=== PATIENT | female | born 1950 | race Caucasian/White ===

== ENCOUNTER 2016-10-03 16:26 | Emergency (ER) | payer MEDICARE ==
[~2016-10-03] VITALS: Ht 154.9 cm; Wt 63.5 kg
[2016-10-03 21:37] LABS: APPEARANCE,URINE CLOUDY (CLEAR); GLUCOSE, URINE (UA) 100 mg/dL (NEGATIVE); KETONES,URINE NEGATIVE (NEGATIVE); LEUKOCYTE ESTERASE ,URINE SMALL (NEGATIVE); OCCULT BLOOD,URINE SMALL (NEGATIVE); PROTEIN,URINE POS 1+ (NEGATIVE)
[2016-10-03 21:38] LABS: ADD UA MICROSCOPIC YES
[2016-10-03 22:01] LABS: SQUAMOUS EPITHELIAL CELL,UR Many /LPF (None Seen)
[2016-10-03 22:02] LABS: CALCIUM OXALATE CRYSTALS,UR Moderate /LPF (None Seen)
[2016-10-03 22:03] LABS: WBC,URINE 26-50 /HPF (0-5)
[2016-10-03 22:12] VITALS: BP 139/81
[2016-10-03] MEDS ORDERED: ACETAMINOPHEN 500 MG TABLET PO ONE (22:15)
== END 2016-10-03 22:20 | disposition home or self-care (01) ==
LOC: EMS 16:30
DX: M51.26 Other intervertebral disc displacement, lumbar region (principal); J06.9 Acute upper respiratory infection, unspecified; F14.90 Cocaine use, unspecified, uncomplicated; F17.210 Nicotine dependence, cigarettes, uncomplicated; Z59.0 Homelessness; Z88.6 Allergy status to analgesic agent; Z88.8 Allergy status to other drugs, medicaments and biological substances
CPT/HCPCS: 87086; 99284; 99406

== ENCOUNTER 2018-06-04 11:24 | Inpatient (IN) | payer MEDICARE, MEDICAID ==
[~2018-06-04] VITALS: Ht 147.3 cm; Wt 40.0 kg
[2018-06-04 13:42] VITALS: BP 117/73
[2018-06-04] MEDS ORDERED: ZOLPIDEM TARTRATE 10 MG TABLET PO PRN (13:45)
[2018-06-04] MEDS ORDERED: QUET200T PO (14:23)
[2018-06-04] MEDS ORDERED: ARIP10TA8 PO (14:23)
[2018-06-04] MEDS ORDERED: CloNIDine HCL 0.1 MG TABLET PO PRN (15:15)
[2018-06-04] MEDS ORDERED: ALBUTEROL SULFATE HFA 90 MCG/PUFF 8 GM INHALER IH PRN (15:15)
[2018-06-04] MEDS ORDERED: IBUPROFEN 400 MG TABLET PO PRN (15:15)
[2018-06-04] MEDS ORDERED: ONDANSETRON HCL 4 MG TABLET PO PRN (15:15)
[2018-06-04] MEDS ORDERED: PETROLATUM,WHITE 71 GM JELLY TP PRN (15:15)
[2018-06-04] MEDS ORDERED: DOCUSATE SODIUM 100 MG CAPSULE PO PRN (15:15)
[2018-06-04] MEDS ORDERED: NICOTINE 14 MG/24 HOUR PATCH TD PRN (15:15)
[2018-06-04] MEDS ORDERED: GuaiFENesin/D-METHORPHAN [SUGAR-FREE] 200-20MG/10 ML SYRUP UDCUP PO PRN (15:15)
[2018-06-04] MEDS ORDERED: MAG HYDROX/AL HYDROX/SIMETH ES 30 ML SUSPENSION UDCUP PO PRN (15:15)
[2018-06-04] MEDS ORDERED: MAGNESIUM HYDROXIDE SUSPENSION 30 ML UDCUP PO PRN (15:15)
[2018-06-04] MEDS ORDERED: LOPERAMIDE HCL 2 MG CAPSULE PO PRN (15:15)
[2018-06-04 16:39] VITALS: BP 134/86
[2018-06-04] MEDS: HALOPERIDOL 5 MG TABLET PO PRN (16:56)
[2018-06-04] MEDS: LORazepam 2 MG TABLET PO PRN (16:56)
[2018-06-05] MEDS: LORazepam 2 MG TABLET PO PRN (08:18)
[2018-06-05 08:22] VITALS: BP 132/100
[2018-06-05] MEDS: NICOTINE 21 MG/24 HOUR PATCH TD SCH (13:14)
[2018-06-05 16:15] VITALS: BP 117/90
[2018-06-05 16:21] VITALS: BP 117/90
[2018-06-05] MEDS: QUEtiapine FUMARATE 200 MG TABLET PO SCH (20:18)
[2018-06-06 02:27] VITALS: BP 120/84
[2018-06-06 07:42] LABS: BASOPHILS % (AUTO) 0.8 % (0.0-2.0); EOSINOPHILS % (AUTO) 1.4 % (1.0-6.0); HEMATOCRIT 42.1 % (36-46); LYMPHOCYTES # (AUTO) 3.3 K/uL (1.0-4.8); LYMPHOCYTES % (AUTO) 34.8 % (22.0-44.0); MEAN CORPUSCULAR HGB CONC 33.4 G/dL (31.0-37.0); MEAN CORPUSCULAR VOLUME 87 fL (80-100); MONOCYTES # (AUTO) 0.8 K/uL (0.1-1.0); MONOCYTES % (AUTO) 8.6 % (2.0-9.0); NEUTROPHILS # (AUTO) 5.1 K/uL (1.8-7.7); NEUTROPHILS % (AUTO) 54.4 % (40.0-70.0); PLATELET COUNT (AUTO) 382 K/uL (150-450); RED BLOOD CELL COUNT(AUTO) 4.84 MIL/uL (4.00-5.20); RED CELL DISTRIBUTION WIDTH 14.5 % (11.5-14.5)
[2018-06-06 07:51] LABS: HEMOGLOBIN A1C 5.8 % (4.5-6.2)
[2018-06-06] MEDS ORDERED: LORazepam 2 MG/ML VIAL IM ONE (08:00)
[2018-06-06] MEDS ORDERED: DiphenhydrAMINE HCL 50 MG/ML VIAL IM ONE (08:00)
[2018-06-06] MEDS ORDERED: HALOPERIDOL LACTATE 5 MG/ML VIAL IM ONE (08:00)
[2018-06-06 08:07] LABS: ALANINE AMINOTRANSFERASE 47 U/L (12-78); ALBUMIN 2.8 g/dL (3.4-5.0); ALKALINE PHOSPHATASE 67 U/L (46-116); ANION GAP 5 mmol/L (8-16); ASPARTATE AMINOTRANSFERASE 40 U/L (15-37); BILIRUBIN,TOTAL 0.3 mg/dL (0.1-1.0); CALCIUM, TOTAL 8.4 mg/dL (8.8-10.5); CARBON DIOXIDE 32 mmol/L (22-29); CHLORIDE 103 mmol/L (98-107); CHOL/HDL RATIO 3.8 (3.9-5.7); CHOLESTEROL 168 mg/dL (131-200); CREATININE 0.77 mg/dL (0.60-1.30); GLOMERULAR FILTR. RATE CALC > 60 mL/min (>60); GLUCOSE,RANDOM 128 mg/dL (70-110); HDL CHOLESTEROL 44 mg/dL (40-60); LDL CHOL (CALC.) 62 mg/dL (0-130); POTASSIUM 3.7 mmol/L (3.5-5.1); SODIUM SERUM 140 mmol/L (136-145); TOTAL PROTEIN, SERUM 6.7 g/dL (6.4-8.2); TRIGLYCERIDES 309 mg/dL (15-150); UREA NITROGEN, BLOOD 16 mg/dL (7-18)
[2018-06-06] MEDS: NICOTINE 21 MG/24 HOUR PATCH TD SCH (09:00)
[2018-06-06] MEDS: QUEtiapine FUMARATE 200 MG TABLET PO SCH ×2 (09:00→20:46)
[2018-06-06] MEDS: HALOPERIDOL 5 MG TABLET PO PRN (17:12)
[2018-06-06] MEDS: LORazepam 2 MG TABLET PO PRN (17:12)
[2018-06-07 05:09] VITALS: BP 122/88
[2018-06-07] MEDS: LEVOTHYROXINE SODIUM 50 MCG TABLET PO SCH (06:26)
[2018-06-07 08:13] VITALS: BP 118/83
[2018-06-07] MEDS: QUEtiapine FUMARATE 200 MG TABLET PO SCH ×2 (08:31→20:52)
[2018-06-07] MEDS: NICOTINE 21 MG/24 HOUR PATCH TD SCH (08:32)
[2018-06-07 16:07] VITALS: BP 110/68
[2018-06-08 03:21] VITALS: BP 116/76
[2018-06-08] MEDS: LEVOTHYROXINE SODIUM 50 MCG TABLET PO SCH (07:12)
[2018-06-08 08:14] VITALS: BP 129/86
[2018-06-08] MEDS: QUEtiapine FUMARATE 200 MG TABLET PO SCH ×2 (08:38→20:19)
[2018-06-08] MEDS: LORazepam 2 MG TABLET PO PRN ×2 (08:38→15:17)
[2018-06-08] MEDS: NICOTINE 21 MG/24 HOUR PATCH TD SCH (08:38)
[2018-06-08 11:14] VITALS: BP 126/78
[2018-06-08] MEDS: ACETAMINOPHEN 325 MG TABLET PO PRN (11:15)
[2018-06-09 02:04] VITALS: BP 108/64
[2018-06-09] MEDS: ACETAMINOPHEN 325 MG TABLET PO PRN ×3 (02:47→16:57)
[2018-06-09] MEDS: LEVOTHYROXINE SODIUM 50 MCG TABLET PO SCH (06:43)
[2018-06-09] MEDS: LORazepam 2 MG TABLET PO PRN ×2 (08:07→16:56)
[2018-06-09] MEDS: QUEtiapine FUMARATE 200 MG TABLET PO SCH (08:07)
[2018-06-09] MEDS: NICOTINE 21 MG/24 HOUR PATCH TD SCH (08:08)
[2018-06-09 08:16] VITALS: BP 104/69
[2018-06-09] MEDS: HALOPERIDOL 5 MG TABLET PO PRN (16:56)
[2018-06-09] MEDS: QUEtiapine FUMARATE 300 MG TABLET PO SCH (21:02)
[2018-06-10] MEDS: LEVOTHYROXINE SODIUM 50 MCG TABLET PO SCH (06:30)
[2018-06-10 08:12] VITALS: BP 126/74
[2018-06-10] MEDS: QUEtiapine FUMARATE 300 MG TABLET PO SCH ×2 (08:42→21:40)
[2018-06-10] MEDS: LORazepam 2 MG TABLET PO PRN ×2 (08:42→16:45)
[2018-06-10] MEDS: NICOTINE 21 MG/24 HOUR PATCH TD SCH (08:42)
[2018-06-10] MEDS: OMEGA-3/DHA/EPA/FISH OIL 1,000 MG CAPSULE PO SCH (13:00)
[2018-06-10 16:00] VITALS: BP 108/74
[2018-06-10] MEDS: HALOPERIDOL 5 MG TABLET PO PRN (16:45)
[2018-06-10 17:57] VITALS: BP 101/74
[2018-06-11] MEDS: LEVOTHYROXINE SODIUM 50 MCG TABLET PO SCH ×2 (06:30→06:43)
[2018-06-11 08:18] VITALS: BP 121/69
[2018-06-11] MEDS: OMEGA-3/DHA/EPA/FISH OIL 1,000 MG CAPSULE PO SCH (08:53)
[2018-06-11] MEDS: HALOPERIDOL 5 MG TABLET PO PRN (08:53)
[2018-06-11] MEDS: QUEtiapine FUMARATE 300 MG TABLET PO SCH ×2 (08:53→21:00)
[2018-06-11] MEDS: LORazepam 2 MG TABLET PO PRN (08:53)
[2018-06-11] MEDS: NICOTINE 21 MG/24 HOUR PATCH TD SCH (08:53)
[2018-06-11] MEDS: ACETAMINOPHEN 325 MG TABLET PO PRN (13:09)
[2018-06-11 17:55] VITALS: BP 96/66
[2018-06-12] MEDS: LEVOTHYROXINE SODIUM 50 MCG TABLET PO SCH (06:33)
[2018-06-12] MEDS: NICOTINE 21 MG/24 HOUR PATCH TD SCH (08:13)
[2018-06-12] MEDS: QUEtiapine FUMARATE 300 MG TABLET PO SCH ×2 (08:14→20:40)
[2018-06-12] MEDS: LORazepam 2 MG TABLET PO PRN (08:14)
[2018-06-12 08:20] VITALS: BP 108/74
[2018-06-12 17:21] VITALS: BP 114/68
[2018-06-13] MEDS: ACETAMINOPHEN 325 MG TABLET PO PRN (06:34)
[2018-06-13] MEDS: LEVOTHYROXINE SODIUM 50 MCG TABLET PO SCH (06:49)
[2018-06-13 08:07] VITALS: BP 110/67
[2018-06-13] MEDS: QUEtiapine FUMARATE 300 MG TABLET PO SCH (08:54)
[2018-06-13] MEDS: LORazepam 2 MG TABLET PO PRN (08:54)
[2018-06-13] MEDS: NICOTINE 21 MG/24 HOUR PATCH TD SCH (09:05)
[2018-06-13] MEDS ORDERED: LEVO50TA11 PO (10:27)
[2018-06-13] MEDS ORDERED: QUET300T2 PO (10:27)
== END 2018-06-13 16:00 | disposition home or self-care (01) | DRG 885 ==
LOC: B3A 13:40
DX: F20.0 Paranoid schizophrenia (principal); Z28.21 Immunization not carried out because of patient refusal; E03.9 Hypothyroidism, unspecified; F17.200 Nicotine dependence, unspecified, uncomplicated; J45.909 Unspecified asthma, uncomplicated; M19.90 Unspecified osteoarthritis, unspecified site; Z79.899 Other long term (current) drug therapy; Z90.710 Acquired absence of both cervix and uterus; Z90.49 Acquired absence of other specified parts of digestive tract; F41.9 Anxiety disorder, unspecified; H57.89 Other specified disorders of eye and adnexa; F19.10 Other psychoactive substance abuse, uncomplicated; Z71.51 Drug abuse counseling and surveillance of drug abuser; Z71.6 Tobacco abuse counseling; Z88.8 Allergy status to other drugs, medicaments and biological substances; Z91.013 Allergy to seafood
CPT/HCPCS: 83036; 84439; 84443; 87081; J1200; J1630; J2060